=== PATIENT | female | born 1960 | race American Indian/Alaskan Native ===

== ENCOUNTER 2020-09-28 08:11 | Outpatient (CLI) | payer OTHER ==
--- NOTE | 2020-09-28 09:09 | XRay Report ---
CHEST 2 VIEWS INDICATION: COVID 19 W/ COMPLICATIONS. COMPARISON: None available FINDINGS: Support devices: None. Heart: Within normal limits. Lungs/pleura: No acute air space or interstitial disease. No pneumothorax. Additional findings: None. IMPRESSION: No acute findings. Unremarkable chest films. Signer Name: Navneet Villalpando Jr, MD Signed: 09/28/2020 9:05 AM Workstation Name: [id number]
== END 2020-09-28 08:12 | disposition home or self-care (01) ==
LOC: XRAY 08:11
PROVIDERS: ATTEND Internal Medicine
DX: R06.02 Shortness of breath (principal); I10 Essential (primary) hypertension; E66.9 Obesity, unspecified; H40.9 Unspecified glaucoma; G43.909 Migraine, unspecified, not intractable, without status migrainosus; E78.00 Pure hypercholesterolemia, unspecified; R68.89 Other general symptoms and signs
CPT/HCPCS: 71046